=== PATIENT | male | born 1970 | race Caucasian/White ===

== ENCOUNTER 2021-07-21 19:22 | Emergency (ER) | payer MEDICAID ==
[~2021-07-21] VITALS: Ht 172.7 cm; Wt 78.5 kg
--- NOTE | 2021-07-21 20:31 | NUR ---
pt in room 2b here for lower back pain
--- NOTE | 2021-07-21 20:33 | NUR ---
DR Sandoval in room 2 for MSE
[2021-07-21] MEDS ORDERED: OXYC-128 PO (21:24)
--- NOTE | 2021-07-21 21:29 | NUR ---
Patient discharged to home in stable condition. Written and verbal after care instructions given. Patient verbalizes understanding of instructions. Stressed follow up or return to ER for worsening s/s.
[2021-07-21 21:30] VITALS: BP 123/74
== END 2021-07-21 21:31 | disposition home or self-care (01) ==
LOC: ER 19:30
DX: S39.012A Strain of muscle, fascia and tendon of lower back, initial encounter (principal); V49.60XA Unspecified car occupant injured in collision with unspecified motor vehicles in traffic accident, initial encounter; Y92.410 Unspecified street and highway as the place of occurrence of the external cause; M25.78 Osteophyte, vertebrae
CPT/HCPCS: 72100; A4663

== ENCOUNTER 2021-08-22 15:52 | Emergency (ER) | payer MEDICAID ==
[~2021-08-22] VITALS: Ht 172.7 cm; Wt 78.5 kg
[~2021-08-22 15:52] MED LIST: OXYC-128 PO
--- NOTE | 2021-08-22 16:21 | NUR ---
Patient ambulatory, alert and oriented x4 with complaints of sore throat,chills and feeling warmth started last night. Denies abdominal pain, nausea/vomiting. Vitals stable.
[2021-08-22] MEDS ORDERED: AZIT500T PO (17:20)
[2021-08-22] MEDS ORDERED: predniSONE 50 MG TABLET ONE (17:24)
[2021-08-22] MEDS ORDERED: AZITHROMYCIN 250 MG TABLET ONE (17:24)
[2021-08-22] MEDS ORDERED: predniSONE 50 MG TABLET PO ONE (17:30)
[2021-08-22] MEDS ORDERED: AZITHROMYCIN 250 MG TABLET PO ONE (17:30)
== END 2021-08-22 17:28 | disposition home or self-care (01) ==
LOC: ER 15:53
DX: I88.9 Nonspecific lymphadenitis, unspecified (principal); J22 Unspecified acute lower respiratory infection
CPT/HCPCS: 99283; J7512; A4663; Q0144

== ENCOUNTER 2025-03-02 16:59 | Emergency (ER) | payer MEDICAID, OTHER ==
[~2025-03-02] VITALS: Ht 172.7 cm; Wt 81.6 kg
[~2025-03-02 16:59] MED LIST changes: +AZIT500T PO
[2025-03-02] MEDS ORDERED: ONDANSETRON 4 MG/2 ML VIAL ONE (18:01)
[2025-03-02 18:03] LABS: PLATELET COUNT (AUTO) 222 K/uL (152-348); RED BLOOD CELL COUNT(AUTO) 4.86 MIL/uL (4.06-5.63); RED CELL DISTRIBUTION WIDTH 12.4 % (12.1-16.2); WHITE BLOOD COUNT (AUTO) 7.0 K/uL (3.6-10.2)
[2025-03-02] MEDS: ONDANSETRON 4 MG/2 ML VIAL IV ONE (18:04)
[2025-03-02] MEDS: IV NS 1000 ML 1,000 ML IV ONE (18:04)
[2025-03-02 18:05] LABS: *BILIRUBIN,URIN NEGATIVE (NEGATIVE); *BLOOD, URINE NEGATIVE (NEGATIVE); *CLARITY,URINE CLEAR (CLEAR); *COLOR,URINE YELLOW (YELLOW); *KETONES,URINE NEGATIVE (NEGATIVE); *PROTEIN,URINE NEGATIVE (NEGATIVE); *UROBILINOGEN,URINE 0.2 E.U./dl (NORMAL); LEUKOCYTE ESTERASE ,URINE NEGATIVE (NEGATIVE); NITRITE, URINE NEGATIVE (NEGATIVE); UGLUCOSE NEGATIVE (NEGATIVE)
[2025-03-02 18:11] LABS: CREATININE 1.1 mg/dL (0.6-1.3); SODIUM SERUM 141.0 mmol/L (136-145); UREA NITROGEN, BLOOD 13.0 mg/dL (7-18)
[2025-03-02 18:23] LABS: ASPARTATE AMINOTRANSFERASE 25.0 U/L (15-37); TOTAL PROTEIN, SERUM 6.9 g/dL (6.4-8.2)
[2025-03-02] MEDS ORDERED: POTASSIUM BICARBONATE/CIT AC 25 MEQ TABLET.EFF ONE (18:39)
[2025-03-02] MEDS: MAGNESIUM SULFATE/D5W 100 ML IV SCH (18:40)
[2025-03-02] MEDS: POTASSIUM BICARBONATE/CIT AC 25 MEQ TABLET.EFF PO ONE (18:40)
[2025-03-02] MEDS ORDERED: MAGNESIUM SULFATE/D5W 200 ML ONE (18:40)
[2025-03-02] MEDS ORDERED: ONDA4TAB5 PO (18:48)
[2025-03-02] MEDS ORDERED: POTA25TA7 PO (18:48)
[2025-03-02 19:30] VITALS: BP 136/75
[2025-03-02 20:51] VITALS: BP 131/79; O2SAT 98
== END 2025-03-02 20:52 | disposition home or self-care (01) ==
LOC: ER 17:14
DX: E83.42 Hypomagnesemia (principal); E87.6 Hypokalemia; R11.0 Nausea
CPT/HCPCS: 99284; 96365; 96361; 96375; 80076; 80048; 81003; 83735; 85025; 36415; J3475; J2405; J7040; A4606; A4663

== ENCOUNTER 2025-03-14 16:31 | Emergency (ER) | payer OTHER ==
[~2025-03-14] VITALS: Ht 167.6 cm; Wt 70.3 kg
[~2025-03-14 16:31] MED LIST changes: +ONDA4TAB5 PO; +POTA25TA7 PO
[2025-03-14 17:11] VITALS: BP 152/64; O2SAT 98
== END 2025-03-14 20:45 | disposition left against medical advice (07) ==
LOC: ER 16:52
DX: J00 Acute nasopharyngitis [common cold] (principal); Z53.21 Procedure and treatment not carried out due to patient leaving prior to being seen by health care provider
CPT/HCPCS: A4606; A4663